=== PATIENT | male | born 1940 | race Caucasian/White ===

== ENCOUNTER 2018-05-26 15:13 | Emergency (ER) | payer MEDICARE ==
[~2018-05-26] VITALS: Ht 175.2 cm; Wt 68.0 kg
--- NOTE | ~2018-05-26 | EKG ---
[place], [place] ELECTROCARDIOGRAM REPORT NAME: EDUARDO STEARNS UNIT #: [id number] ROOM: DOCTOR: EPIPHANY DRAFT REPORT BIRTHDATE: [birth year] [facility] Test Date: 2018-05-26 Test Time: 16:36:59 Pat Name: EDUARDO STEARNS Department: ER Room: 3 Gender: M [employer] Operator: EKG.UT : 1940 Requested By: ELAINE RODRIGES Order Number: [id number] Reading MD: Feng Chen MD Measurements Intervals [place] Rate: 86 P: -3 TX: 231 QRS: 44 QRSD: 83 T: 63 QT: 384 QTc: 460 Interpretive Statements Sinus rhythm Prolonged [place] interval Abnormal R-wave progression, early transition Electronically Signed On 05-26-2018 21:29:40 PST by Feng Chen MD CM:EKGRPT:ELECTROCARDIOGRAM REPORT [id number] ELAINE SERRANO DRAFT REPORT ELAINE RODRIGES DO
[2018-05-26 16:33] LABS: BASO % 0.2 % (0.0-1.0); EOS # 0.1 10*3/uL (0.0-0.4); EOS % 1.1 % (1.0-4.0); HEMATOCRIT 37.4 % (42.0-52.0); HEMOGLOBIN 11.5 g/dl (14.0-18.0); LYMPH # 1.1 10*3/uL (1.3-4.4); LYMPH % 10.9 % (27.0-41.0); MEAN CELL VOLUME 91.2 fl (80.0-94.0); MEAN CORPUSCULAR HGB CONC 30.7 g/dl (33.0-37.0); MONO # 0.8 10*3/uL (0.1-1.0); MONO % 7.9 % (3.0-9.0); NEUT # 7.7 10*3/uL (2.3-7.9); NEUT % 79.6 % (47.0-73.0); PLATELET COUNT AUTOMATED 179 10*3/uL (130-400); RED CELL DISTRI WIDTH 15.7 % (0-14.5); WHITE BLOOD COUNT 9.7 10*3/uL (4.8-10.8)
[2018-05-26 16:36] LABS: BILIRUBIN NEGATIVE (NEGATIVE); BLOOD 2+ (NEGATIVE); CLARITY TURBID (CLEAR); COLOR YELLOW (YELLOW); GLUCOSE NEGATIVE (NEGATIVE); KETONE NEGATIVE (NEGATIVE); LEUKO ESTERASE 3+ (NEGATIVE); NITRITE NEGATIVE (NEGATIVE); PH 7.5 (5.0-9.0); SPECIFIC GRAVITY 1.005 (1.005-1.030); UROBILINOGEN 0.2 E.U./dl (0.2-1.0)
[2018-05-26 16:41] LABS: ACT PARTIAL THROMBO TIME 24.1 SECONDS (20.8-31.5)
[2018-05-26 16:44] LABS: BACTERIA 4+; WBC TNTC wbc/hpf (0-5)
[2018-05-26 16:47] LABS: ALBUMIN 2.7 gm/dl (3.1-4.5); ALKALINE PHOSPHATASE 87 U/L (45-117); BUN 35 mg/dl (7-24); CHLORIDE 102 mmol/L (98-107); CREATININE 2.63 mg/dL (0.70-1.30); LIPASE 159 U/L (73-393); POTASSIUM 4.3 mmol/L (3.5-5.1); SGOT/AST 13 IU/L (3-35); SGPT/ALT 10 U/L (12-78); SODIUM 139 mmol/L (136-145)
[2018-05-26 16:48] LABS: TROPONIN I < 0.015 ng/ml (<0.045)
[2018-05-26] MEDS ORDERED: FERROUS SULFAT324 M2 PO (17:10)
[2018-05-26] MEDS ORDERED: VITAMIN B121000 MC1 PO (17:10)
[2018-05-26] MEDS ORDERED: VITAMIN C500 M4 PO (17:10)
[2018-05-26] MEDS ORDERED: PRAVACHOL40 MG PO (17:11)
[2018-05-26] MEDS ORDERED: VITAMIN D31000 UNI1 PO (17:11)
== END 2018-05-26 21:56 | disposition short-term general hospital (02) ==
LOC: ED 15:13
PROVIDERS: Emergency Medicine
DX: N13.30 Unspecified hydronephrosis (principal); N39.0 Urinary tract infection, site not specified; Z93.6 Other artificial openings of urinary tract status; Z93.3 Colostomy status; Z88.2 Allergy status to sulfonamides; Z79.899 Other long term (current) drug therapy; Z85.038 Personal history of other malignant neoplasm of large intestine